=== PATIENT | female | born 1945 | race Caucasian/White ===

== ENCOUNTER → 2017-05-30 | Outpatient (CLI) | payer OTHER ==
[~2017-05-30] MED LIST: ALFALFA250 MG PO; ALLEGRA ALLERG180 MG PO; ALLEGRA180 MG PO; ALLEGRA60 MG; ASPIRIN EC81 M1 PO; ATHLETIC FOOT C30 GM TOP; AUGMENTIN 875-1 EACH PO; C-1000 WITH R1000 MG PO; CAL-MAG TABLET1 EACH PO; CALCIUM 600 +1 EA11 PO; CELEBREX 200 M200 MG; CENTANY30 GM TOP; CENTRUM SILVER1 EAC1 PO; CENTRUM SILVER1 EAC4 PO; CHOLEST CARE500 MG; CHROMIUM PICO200 MC1 PO; CITRACAL-VIT D1 EACH PO; CLARITIN10 M2 PO; CLEOCIN HCL150 MG PO; COLACE100 MG PO; COQ-10100 MG PO; COZAAR 50 MG TA50 M2; CRANBERRY400 MG PO; CRESTOR5 MG PO; CVS SUPER CRAN1 EACH PO; D-BIOTIN1 GM; EXCEDRIN CAPLE1 EACH PO; FISH OIL 1,2001 EAC3 PO; FISH OIL 1,4001 EACH PO; FISHOIL PO; FLEXERIL; FLEXERIL PO; FLONASE NS; HCTZ PO; HYDROCODON-ACE1 EAC7; HYDROCODON-ACE1 EAC7 PO; I-CAPS AREDS S1 EACH PO; IBUPROFEN 200200 M1 PO; IMODIUM ADVANC1 EAC1; IMODIUM MULTI-1 EACH PO; IRON325 PO; KAPIDEX30 MG PO; KLOR-CON 1010 MEQ PO; KYOLIC PO; L-LYSINE500 M1 PO; LASIX 20 MG TAB20 MG PO; LECITHIN PO; LEVOTHROID125 MCG PO; LIVALO4 MG PO; LOPERAMIDE 2 MG2 M1 PO; LORTAB 5 MG/5001 TA1; LOSARTAN POTAS100 MG PO; LOSARTAN POTASS50 MG PO; MAGNESIUM PO; MAGNESIUM500 MG PO; MAGOX 400400 MG; MECLIZINE HCL12.5 MG PO; MEDROLDOSEPACK PO; NEURONTIN 300300 M1 PO; NORCO 10-325 T1 EACH PO; NORCO 5-325 TA1 EACH PO; OMEPRAZOLE20 M2; PERCOCET PO; POTASSIUM GLUCO90 MG PO; POTASSIUM20 PO; POTASSIUM99 M1 PO; PRENATAL VITAM1 EAC6 PO; PROTONIX40 M1 PO; PROTONIX40 M2 PO; Q SORB CO Q PO; RED YEAST RICE600 M1 PO; REGLAN 10 MG TA10 MG PO; REPATHA SU140 MG/1 M SUBQ; REPATHA SY140 MG/1 M SQ; REQUIP 1 MG TABL1 M1 PO; REQUIP0.5 MG PO; REQUIP2 MG PO; SYNTHROID PO; SYNTHROID100 MC1 PO; SYNTHROID125 MCG PO; TRAMADOL PO; TRIAMCINOLONE A80 G2 TOP; Tumeric PO; ULTRAM 50MG TAB50 MG PO; VALIUM5 MG PO; VANADYL SULFATE PO; VANADYL SULFATE1 GM; VERAPAMIL ER240 MG PO; VERAPAMIL HCL240 M1; VITAMIN B-1100 M1 PO; VITAMIN B-121000 MC1 PO; VITAMIN B-625 MG PO; VITAMIN D35000 UNI1 PO; VITAMIN D5000 UNI1 PO; VITAMIN E1000 UNI3 PO; VITAMIN E400 UNIT PO; VITAMINC500 PO; ZANAFLEX2 M1 PO; ZANAFLEX2 MG PO; ZANAFLEX4 MG PO; ZINC PO; [UNRECOGNIZED DRUG - OTHER] PO; [UNRECOGNIZED DRUG - OTHER] PO
[2017-05-30 12:35] LABS: CREATININE 0.6 mg/dL (0.6-1.3); POTASSIUM 3.8 mmol/L (3.5-5.1)
== END ==
LOC: M.LAB 11:54
PROVIDERS: Internal Medicine Cardiovascular Disease
DX: I10 Essential (primary) hypertension (principal); R60.0 Localized edema; E78.2 Mixed hyperlipidemia

== ENCOUNTER → 2017-06-27 | Outpatient (CLI) | payer OTHER | LOC: M.ULTRA 06-25 12:13 | DX: E03.9 Hypothyroidism, unspecified (principal); R22.1 Localized swelling, mass and lump, neck; M79.9 Soft tissue disorder, unspecified ==

== ENCOUNTER 2017-08-20 09:17 | Emergency (ER) | payer OTHER ==
[~2017-08-20] VITALS: Ht 154.9 cm; Wt 85.3 kg
[~2017-08-20 09:17] MED LIST changes: -ATHLETIC FOOT C30 GM TOP; -CALCIUM 600 +1 EA11 PO; -CLARITIN10 M2 PO; -EXCEDRIN CAPLE1 EACH PO; -KLOR-CON 1010 MEQ PO; -LASIX 20 MG TAB20 MG PO; -MECLIZINE HCL12.5 MG PO; -SYNTHROID100 MC1 PO; -TRIAMCINOLONE A80 G2 TOP; -VITAMIN E400 UNIT PO; -VITAMINC500 PO; -ZANAFLEX2 MG PO
[2017-08-20] MEDS ORDERED: NORCO 5-325 TA1 EACH PO (09:35)
[2017-08-20] MEDS ORDERED: FLEXERIL PO (09:35)
[2017-08-20 10:02] VITALS: BP 143/73
[2018-03-13] MEDS ORDERED: NORCO 5-325 TA1 EACH PO (10:56)
== END 2017-08-20 10:03 | disposition home or self-care (01) ==
LOC: M.ERS 09:17
DX: G89.29 Other chronic pain (principal); K21.9 Gastro-esophageal reflux disease without esophagitis; I10 Essential (primary) hypertension; Z88.6 Allergy status to analgesic agent; Z91.041 Radiographic dye allergy status; Z88.8 Allergy status to other drugs, medicaments and biological substances; Z90.49 Acquired absence of other specified parts of digestive tract; Z87.442 Personal history of urinary calculi; Z90.710 Acquired absence of both cervix and uterus

== ENCOUNTER 2017-11-25 14:52 | Emergency (ER) | payer OTHER ==
[~2017-11-25] VITALS: Ht 157.5 cm; Wt 83.5 kg
[2017-11-25 16:19] LABS: ABSOLUTE BASOPHILS 0.1 thou/uL (0.0-0.2); ABSOLUTE EOSINOPHILS 0.4 thou/uL (0.0-0.7); ABSOLUTE LYMPHOCYTES 2.3 thou/uL (0.8-5.3); ABSOLUTE MONOCYTES 0.8 thou/uL (0.0-1.2); ABSOLUTE NEUTROPHILS 6.1 thou/uL (1.6-8.1); BASOPHILS 0.7 %; HEMOGLOBIN 13.2 gm/dL (12.0-15.0); LYMPHOCYTES 24.2 %; MCH 30.5 pg (26.0-34.0); MCHC 32.9 g/dL (28.0-37.0); MCV 92.5 fL (80.0-100.0); MONOCYTES 7.9 %; MPV 7.9 fl. (7.2-11.1); NUCLEATED RBCS 0 /100WBC; PLATELET COUNT* 305 thou/uL (150-400); POLYS 63.2 %; RBC 4.32 mil/uL (4.20-5.00); RDW-CV 13.7 % (10.5-14.5); WBC 9.6 thou/uL (4.0-11.0)
[2017-11-25 16:26] LABS: CALCIUM 9.6 mg/dL (8.5-10.1); CREATININE 0.8 mg/dL (0.6-1.3); POTASSIUM 4.3 mmol/L (3.5-5.1)
[2017-11-25 16:31] LABS: ALBUMIN 3.8 g/dL (3.4-5.0); TOTAL BILIRUBIN 0.4 mg/dL (<0.1-1.0); TOTAL PROTEIN 6.9 g/dL (6.4-8.2)
[2017-11-25 17:26] LABS: URINE BILIRUBIN NEGATIVE (Negative); URINE BLOOD TRACE (Negative); URINE CLARITY CLEAR; URINE COLOR YELLOW; URINE GLUCOSE-RANDOM NEGATIVE (Negative); URINE KETONES NEGATIVE (Negative); URINE LEUKOCYTES-REFLEX NEGATIVE (Negative); URINE NITRITE-REFLEX NEGATIVE (Negative); URINE PROTEIN NEGATIVE (Negative); URINE UROBILINOGEN 0.2 E.U./dl (0.2-1.0)
[2017-11-25] MEDS ORDERED: MECLIZINE HCL12.5 MG PO (17:29)
[2017-11-25] MEDS ORDERED: TRIAMCINOLONE A80 G2 TOP (17:29)
[2017-11-25] MEDS ORDERED: ATHLETIC FOOT C30 GM TOP (17:29)
[2017-11-25 17:45] VITALS: BP 131/72
--- NOTE | 2017-11-26 17:16 | EKG ---
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 Machine Operator: Danielle WHITE : 1945 Requested By: Yokasta Short Order Number: [id number] MD: Dexter Gomes Measurements Intervals [place] Rate: 59 P: 20 MO: 155 QRS: -14 QRSD: 89 T: 11 QT: 452 QTc: 448 Interpretive Statements Sinus rhythm Left ventricular hypertrophy, by voltage Anterior Q waves, possibly due to LVH Compared to ECG 06/28/2015 14:31:34 Left ventricular hypertrophy now present Q waves now present Sinus tachycardia no longer present Myocardial infarct finding no longer present Electronically Signed On 11-26-2017 17:16:17 CDT by Dexter Gomes [email or web address] <ELECTRONICALLY SIGNED> By: Dexter Gomes MD, FACC 11/26/17 1716 1557 1557 Dexter Gomes MD, [facility] /EPI
[2018-03-13] MEDS ORDERED: NORCO 5-325 TA1 EACH PO (10:56)
== END 2017-11-25 17:45 | disposition home or self-care (01) ==
LOC: M.ERS 14:52
PROVIDERS: Nurse Practitioner Family
DX: R42 Dizziness and giddiness (principal); L24.1 Irritant contact dermatitis due to oils and greases; I10 Essential (primary) hypertension; E03.9 Hypothyroidism, unspecified; K21.9 Gastro-esophageal reflux disease without esophagitis; G25.81 Restless legs syndrome; Z90.49 Acquired absence of other specified parts of digestive tract; Z88.6 Allergy status to analgesic agent; Z91.041 Radiographic dye allergy status; Z88.8 Allergy status to other drugs, medicaments and biological substances; Z90.89 Acquired absence of other organs; Z87.442 Personal history of urinary calculi

== ENCOUNTER → 2018-01-31 | Outpatient (CLI) | payer OTHER ==
[~2018-01-31] MED LIST changes: +ATHLETIC FOOT C30 GM TOP; +MECLIZINE HCL12.5 MG PO; +TRIAMCINOLONE A80 G2 TOP
[2018-01-31 14:18] LABS: CHOLESTEROL 156 mg/dL (<200); HDL CHOLESTEROL 51 mg/dL (>40); LDL CHOLESTEROL 79 mg/dL (<100); TC:HDL 3.1 Ratio (Not establshd); TRIGLYCERIDE 133 mg/dL (<150); VLDL 27 mg/dL (<40)
[2018-01-31 14:24] LABS: SERUM ASSESSMENT Clear
== END ==
LOC: M.LAB 13:50
PROVIDERS: Internal Medicine Cardiovascular Disease
DX: E78.00 Pure hypercholesterolemia, unspecified (principal); I10 Essential (primary) hypertension; E03.9 Hypothyroidism, unspecified; K21.9 Gastro-esophageal reflux disease without esophagitis

== ENCOUNTER → 2018-02-10 | Outpatient (CLI) | payer OTHER | LOC: M.RAD 14:32 | DX: M25.571 Pain in right ankle and joints of right foot (principal); M79.671 Pain in right foot; W19.XXXA Unspecified fall, initial encounter ==

== ENCOUNTER → 2018-02-26 | Outpatient (CLI) | payer OTHER ==
[~2018-02-26] MED LIST changes: +CALCIUM 600 +1 EA11 PO; +CLARITIN10 M2 PO; +EXCEDRIN CAPLE1 EACH PO; +KLOR-CON 1010 MEQ PO; +LASIX 20 MG TAB20 MG PO; +SYNTHROID100 MC1 PO; +VITAMIN E400 UNIT PO; +VITAMINC500 PO; +ZANAFLEX2 MG PO
== END ==
LOC: M.RAD 13:57
DX: M47.816 Spondylosis without myelopathy or radiculopathy, lumbar region (principal); M43.26 Fusion of spine, lumbar region; M41.85 Other forms of scoliosis, thoracolumbar region

== ENCOUNTER → 2018-03-12 | Outpatient (CLI) | payer OTHER | LOC: M.ULTRA 08:20 | DX: N28.1 Cyst of kidney, acquired (principal); R10.12 Left upper quadrant pain; Z90.49 Acquired absence of other specified parts of digestive tract ==

== ENCOUNTER 2018-03-13 11:19 | Emergency (ER) | payer OTHER ==
[~2018-03-13] VITALS: Ht 154.9 cm; Wt 84.8 kg
[~2018-03-13 11:19] MED LIST changes: -CALCIUM 600 +1 EA11 PO; -CLARITIN10 M2 PO; -EXCEDRIN CAPLE1 EACH PO; -KLOR-CON 1010 MEQ PO; -LASIX 20 MG TAB20 MG PO; -SYNTHROID100 MC1 PO; -VITAMIN E400 UNIT PO; -VITAMINC500 PO; -ZANAFLEX2 MG PO
[2018-03-13 11:57] LABS: URINE BILIRUBIN NEGATIVE (Negative); URINE BLOOD NEGATIVE (Negative); URINE CLARITY CLOUDY; URINE COLOR YELLOW; URINE GLUCOSE-RANDOM NEGATIVE (Negative); URINE KETONES NEGATIVE (Negative); URINE LEUKOCYTES NEGATIVE (Negative); URINE NITRITE NEGATIVE (Negative); URINE PROTEIN NEGATIVE (Negative); URINE UROBILINOGEN 0.2 E.U./dl (0.2-1.0)
[2018-03-13 12:06] LABS: BACTERIA None Seen /HPF (None Seen); CASTS None Seen /LPF (None Seen); MUCUS None Seen strn/LPF (None Seen); SQUAMOUS NONE SEEN /LPF (0-3); URINE RBC None Seen /HPF (0-2); URINE WBC None Seen /HPF (0-5)
[2018-03-13 12:07] LABS: AMORPHOUS PHOSPHATES Moderate /LPF (None Seen); CRYSTALS None Seen /LPF (None Seen)
[2018-03-13 12:07] LABS: ABSOLUTE BASOPHILS 0.1 thou/uL (0.0-0.2); ABSOLUTE EOSINOPHILS 0.3 thou/uL (0.0-0.7); ABSOLUTE LYMPHOCYTES 2.8 thou/uL (0.8-5.3); ABSOLUTE MONOCYTES 0.9 thou/uL (0.0-1.2); ABSOLUTE NEUTROPHILS 8.4 thou/uL (1.6-8.1); EOSINOPHILS 2.3 %; HEMOGLOBIN 13.4 gm/dL (12.0-15.0); LYMPHOCYTES 22.2 %; MCH 30.8 pg (26.0-34.0); MCHC 33.5 g/dL (28.0-37.0); MCV 91.9 fL (80.0-100.0); MONOCYTES 7.5 %; MPV 8.2 fl. (7.2-11.1); NUCLEATED RBCS 0 /100WBC; PLATELET COUNT* 295 thou/uL (150-400); RBC 4.35 mil/uL (4.20-5.00); RDW-CV 13.3 % (10.5-14.5); WBC 12.6 thou/uL (4.0-11.0)
[2018-03-13 12:18] LABS: CALCIUM 9.8 mg/dL (8.5-10.1); CREATININE 0.5 mg/dL (0.6-1.3); POTASSIUM 4.2 mmol/L (3.5-5.1)
[2018-03-13 12:22] LABS: ALBUMIN 3.8 g/dL (3.4-5.0); TOTAL BILIRUBIN 0.4 mg/dL (<0.1-1.0); TOTAL PROTEIN 7.2 g/dL (6.4-8.2)
[2018-03-13] MEDS ORDERED: KLOR-CON 1010 MEQ PO (12:35)
[2018-03-13] MEDS ORDERED: SYNTHROID100 MC1 PO (12:35)
[2018-03-13] MEDS ORDERED: ZANAFLEX2 MG PO (12:35)
[2018-03-13] MEDS ORDERED: LASIX 20 MG TAB20 MG PO (12:36)
[2018-03-13] MEDS ORDERED: VITAMINC500 PO (12:37)
[2018-03-13] MEDS ORDERED: CLARITIN10 M2 PO (12:37)
[2018-03-13] MEDS ORDERED: VITAMIN E400 UNIT PO (12:38)
[2018-03-13] MEDS ORDERED: COQ-10100 MG PO (12:59)
[2018-03-13] MEDS ORDERED: CALCIUM 600 +1 EA11 PO (12:59)
[2018-03-13] MEDS ORDERED: EXCEDRIN CAPLE1 EACH PO (13:00)
[2018-03-13 14:53] VITALS: BP 172/85
== END 2018-03-13 14:54 | disposition home or self-care (01) ==
LOC: M.ERS 11:19
PROVIDERS: Nurse Practitioner Family
DX: R10.32 Left lower quadrant pain (principal); M48.061 Spinal stenosis, lumbar region without neurogenic claudication; M51.06 Intervertebral disc disorders with myelopathy, lumbar region; E03.9 Hypothyroidism, unspecified; K21.9 Gastro-esophageal reflux disease without esophagitis; I10 Essential (primary) hypertension; G25.81 Restless legs syndrome; Z88.6 Allergy status to analgesic agent; Z91.041 Radiographic dye allergy status; Z88.8 Allergy status to other drugs, medicaments and biological substances; Z90.49 Acquired absence of other specified parts of digestive tract; Z87.442 Personal history of urinary calculi

== ENCOUNTER → 2018-03-13 | Outpatient (CLI) | payer OTHER ==
--- NOTE | ~2018-03-13 | PAINCON ---
[address] [address] PAIN MANAGEMENT CONSULTATION Name: RAAD CAPUTO Room: [facility]#: [id number] Admission: 03/13/18 Attend Phys: Lc Owens MD Discharge: Date of : 47 Report #: [id number] THIS REPORT FOR: //name// CC: Sonya Stephen DATE OF SERVICE: 03/13/2018 PRIMARY CARE PHYSICIAN: 1. Maggy Malave DO 2. MARY Ho CHIEF COMPLAINT: Abdominal pain. HISTORY: The patient is a 72-year-old female who has been followed in the pain clinic because of chronic lumbar pain. She has returned today for renewal of her medication. At this juncture, she has noted worsening of pain and discomfort in the left lower quadrant. States that she has been told that she had diverticulitis. She feels that the antibiotic, which she has been given may be helping, but feels that her overall condition continues to worsen. States that this feels similar to how her abdominal area felt prior to removal of her appendix. As you may recall, she suffers from lumbar radiculopathy and failed back syndrome. She has returned today and also notes some pain and discomfort in her right knee. She states that she twisted her knee. ALLERGIES: ASPIRIN - BLEEDING ULCER, LIPITOR, LEG CRAMPS, CONTRAST DYE ITCHING, MORPHINE, NONSTEROIDAL ANTI-INFLAMMATORY MEDICATIONS, PRAVASTATIN, LEG CRAMPS, CRESTOR, LEG CRAMPS, TAPE. CURRENT MEDICATIONS: Evolocumab 100 mg subcutaneous every 2 weeks, hydrocodone 10/325 one p.o. q. 4 hours p.r.n., Imodium 2 mg, Synthroid 100 mcg, Zanaflex 2 mg muscle spasms, potassium 10 mEq daily, Lasix 20 mg, Claritin 10 mg, vitamin C, vitamin E 400 units, calcium, CoQ10 100 mg, Excedrin caplets, verapamil ER 240 mg, Requip 4 mg as directed, Michelle 180 mg, vitamin D3 5000 units, chromium 200 mcg, Vanadyl sulfate 500 mg daily. PAIN CLINIC PQRS: 1. History of osteoarthritis. The patient does complain of pain and discomfort in her knees. The patient is not being treated for rheumatoid arthritis. 2. Height 5 feet 2 inches, weight 188 pounds, BMI is 34. 3. Vital Signs: Blood pressure 131/94, heart rate 72, respiratory rate 16, room air saturation 94%. Temperature is 98 degrees. Pain intensity [address]. [place] [address] PAIN MANAGEMENT CONSULTATION Name: RAAD CAPUTO Room: [facility]#: [id number] Admission: 03/13/18 Attend Phys: Lc Owens MD Discharge: Date of : 47 Report #: [id number] 4. Fall history: The patient has not fallen in the last 3 months. 5. Blood thinner. The patient is not on a blood thinning medication. 6. Hypertension. The patient is being treated for hypertension. 7. Opioids greater than 6 weeks. The patient has received an opioid medications greater than 6 weeks. 8. Risk assessment tool. 9. Functional assessment tool. 10. Recreational drug use. The patient denies use of recreational drugs. 11. Tobacco: The patient denies use of tobacco. 12. Alcohol: The patient denies use of alcoholic beverages. PHYSICAL EXAMINATION: GENERAL: The patient is a well-developed, well-nourished white female. Appears her stated age. She is alert and oriented x 3. Affect is appropriate. The patient does seem to be in pain. Grimaces during the interview. HEENT: Normocephalic, atraumatic. Extraocular eye muscles intact. Sclerae nonicteric. Mucous membranes are moist. NECK: Without JVD or adenopathy. HEART: Regular rate. ABDOMEN: The patient has some pain and discomfort in the left lower quadrant area. Upper extremity muscle strength is judged to be 4+/5 for the major muscle groups in the upper extremity. The patient has pain and discomfort in the low back area with some pain in the anterior portion of her hip. IMPRESSION: Abdominal pain with history of diverticulitis. RECOMMENDATIONS: We discussed treatment options with the patient. We will renew the patient's hydrocodone. The patient would like to takes medication for pain. Because of her condition, she is not able to take nonsteroidal anti-inflammatory medications. A script for hydrocodone 5/325 one p.o. t.i.d. have been written. The patient states that her pain is still quite problematic. She is going to go to the Emergency Room as soon as she leaves the pain clinic. We have explained to her the possible complications of ruptured diverticulum. She is going to go to the Emergency Room and seek treatment at this juncture. We would like to thank you for letting us participate in her care. We hope she continues to improve. By: [id number]. Boston Owens MD /GEORGETTE
== END ==
LOC: M.PC 03-04 09:30
DX: R10.32 Left lower quadrant pain (principal); Z87.19 Personal history of other diseases of the digestive system

== ENCOUNTER → 2018-04-04 | Outpatient (CLI) | payer OTHER ==
[~2018-04-04] MED LIST changes: +CALCIUM 600 +1 EA11 PO; +CLARITIN10 M2 PO; +EXCEDRIN CAPLE1 EACH PO; +KLOR-CON 1010 MEQ PO; +LASIX 20 MG TAB20 MG PO; +SYNTHROID100 MC1 PO; +VITAMIN E400 UNIT PO; +VITAMINC500 PO; +ZANAFLEX2 MG PO
== END ==
LOC: M.WC 09:42
DX: M27.8 Other specified diseases of jaws (principal); C08.9 Malignant neoplasm of major salivary gland, unspecified; E03.8 Other specified hypothyroidism; G25.81 Restless legs syndrome; I25.10 Atherosclerotic heart disease of native coronary artery without angina pectoris; I10 Essential (primary) hypertension; I25.2 Old myocardial infarction; J30.2 Other seasonal allergic rhinitis; K21.9 Gastro-esophageal reflux disease without esophagitis; M54.5 Low back pain; M06.9 Rheumatoid arthritis, unspecified; Z90.710 Acquired absence of both cervix and uterus; Z98.49 Cataract extraction status, unspecified eye; W88.8XXA Exposure to other ionizing radiation, initial encounter; Y93.89 Activity, other specified; Y92.89 Other specified places as the place of occurrence of the external cause; Y99.8 Other external cause status

== ENCOUNTER → 2018-07-25 | Outpatient (CLI) | payer OTHER | LOC: M.WC 09:00 | DX: M27.2 Inflammatory conditions of jaws (principal); C08.9 Malignant neoplasm of major salivary gland, unspecified; E03.9 Hypothyroidism, unspecified; H65.23 Chronic serous otitis media, bilateral; I10 Essential (primary) hypertension; I25.10 Atherosclerotic heart disease of native coronary artery without angina pectoris; I25.2 Old myocardial infarction; J30.2 Other seasonal allergic rhinitis; G25.81 Restless legs syndrome; K21.9 Gastro-esophageal reflux disease without esophagitis; M06.9 Rheumatoid arthritis, unspecified; Z90.49 Acquired absence of other specified parts of digestive tract; Z90.710 Acquired absence of both cervix and uterus; Z98.49 Cataract extraction status, unspecified eye; Y78.1 Therapeutic (nonsurgical) and rehabilitative radiological devices associated with adverse incidents; Y63.2 Overdose of radiation given during therapy ==

== ENCOUNTER → 2018-08-27 | Outpatient (CLI) | payer OTHER ==
[2018-08-27 10:35] LABS: CREATININE 0.7 mg/dL (0.6-1.3)
== END ==
LOC: M.CT 08-25 10:55 → M.LAB 10:00 → M.CT 11:00
PROVIDERS: Orthopaedic Surgery
DX: M51.36 Other intervertebral disc degeneration, lumbar region (principal); M48.07 Spinal stenosis, lumbosacral region; M47.816 Spondylosis without myelopathy or radiculopathy, lumbar region; Z98.890 Other specified postprocedural states

== ENCOUNTER 2018-09-04 00:44 | Inpatient (IN) | payer OTHER ==
[~2018-09-04] VITALS: Ht 157.5 cm; Wt 84.8 kg
[2018-09-04] VITALS (8 sets, daily range): BP systolic 113–137; BP diastolic 50–69
[~2018-09-04 00:44] MED LIST changes: +REQUIP XL2 MG PO; -REQUIP2 MG PO; +VERAPAMIL ER240 M1 PO; -VERAPAMIL ER240 MG PO
[2018-09-04 01:09] LABS: ABSOLUTE BASOPHILS 0.1 thou/uL (0.0-0.2); ABSOLUTE EOSINOPHILS 0.1 thou/uL (0.0-0.7); ABSOLUTE LYMPHOCYTES 1.1 thou/uL (0.8-5.3); ABSOLUTE MONOCYTES 0.9 thou/uL (0.0-1.2); ABSOLUTE NEUTROPHILS 14.5 thou/uL (1.6-8.1); BASOPHILS 0.7 %; EOSINOPHILS 0.4 %; HEMATOCRIT 43.8 % (37.0-47.0); HEMOGLOBIN 14.7 gm/dL (12.0-15.0); LYMPHOCYTES 6.6 %; MCH 30.5 pg (26.0-34.0); MCHC 33.5 g/dL (28.0-37.0); MCV 91.1 fL (80.0-100.0); MONOCYTES 5.3 %; MPV 7.5 fl. (7.2-11.1); NUCLEATED RBCS 0 /100WBC; PLATELET COUNT* 334 thou/uL (150-400); RBC 4.81 mil/uL (4.20-5.00); RDW-CV 14.7 % (10.5-14.5); WBC 16.7 thou/uL (4.0-11.0)
[2018-09-04 01:19] LABS: INR 1.1; PROTIME 10.8 Seconds (9.20-11.50)
[2018-09-04 01:36] LABS: ANION GAP 13 mmol/L (7-16); BUN 23 mg/dL (7-18); CALCIUM 8.6 mg/dL (8.5-10.1); CHLORIDE 103 mmol/L (98-107); CO2 24 mmol/L (21-32); CREATININE 0.8 mg/dL (0.6-1.3); GLUCOSE 118 mg/dL (70-99); SODIUM 140 mmol/L (136-145)
[2018-09-04 01:53] LABS: ALBUMIN 3.2 g/dL (3.4-5.0); ALKALINE PHOSPHATASE 83 U/L (46-116); NT-PRO BRAIN NAT PEPTIDE 329 pg/mL (<300); SGOT 22 U/L (15-37); SGPT 27 U/L (30-65); TOTAL BILIRUBIN 0.7 mg/dL (<0.1-1.0); TOTAL PROTEIN 6.5 g/dL (6.4-8.2); TROPONIN-I LEVEL <0.06 ng/mL (<0.06)
[2018-09-04 02:00] LABS: URINE BILIRUBIN NEGATIVE (Negative); URINE BLOOD 1+ (Negative); URINE CLARITY CLEAR; URINE COLOR DARK YELLOW; URINE GLUCOSE-RANDOM NEGATIVE (Negative); URINE KETONES TRACE (Negative); URINE LEUKOCYTES-REFLEX NEGATIVE (Negative); URINE NITRITE-REFLEX NEGATIVE (Negative); URINE PROTEIN TRACE (Negative); URINE SPECIFIC GRAVITY 1.025 (1.005-1.030); URINE UROBILINOGEN 0.2 E.U./dl (0.2-1.0)
[2018-09-04 02:11] LABS: CASTS None Seen /LPF (None Seen); CRYSTALS None Seen /LPF (None Seen); MUCUS 4-6 Moderate strn/LPF (None Seen); SQUAMOUS 0-3 Few /LPF (0-3); URINE RBC 3-10 Few /HPF (0-2); URINE WBC-REFLEX None Seen /HPF (0-5)
--- NOTE | 2018-09-04 04:54 | NUR ---
PT RECIEVED FROM ED. ALERT AND ORIENTED X4. CALL LIGHT WITHIN REACH AND BED IN LOW POSITION. SAT MAINTAINED IN NC. C/O PAIN, MEDICATION GIVEN PER EMAR. HOURLY ROUNDIING DONE FOR PT SAFETY.
--- NOTE | 2018-09-04 09:55 | NUR ---
0758 ASSUMED CARE OF PATIENT. PLEASE SEE DOCUMENTED ASSESSMENT. NSR.OXYGEN AT 2LPM.PT IS FATIGUED
--- NOTE | 2018-09-04 10:56 | EKG ---
[place] [address] ELECTROCARDIOGRAM REPORT Name: RAAD CAPUTO Room: [address] ADM IN M.R.#: [id number] Admission: 09/04/18 Attend Phys: Sincere Up MD Discharge: Date of : 47 Report #: [id number] THIS REPORT FOR: //name// [facility] ED Test Date: 2018-09-04 Test Time: 00:59:13 Pat Name: RAAD CAPUTO Department: Room: [facility] Gender: F Pen Ruler Operator: Danielle CRUZ : 1945 Requested By: Jorge Wagoner Order Number: [id number] MD: Yobani Smith Measurements Intervals [place] Rate: 92 P: 34 NE: 137 QRS: -16 QRSD: 78 T: 18 QT: 345 QTc: 427 Interpretive Statements Sinus rhythm Probable left atrial enlargement Left ventricular hypertrophy Inferior infarct, old Compared to ECG 11/25/2017 15:57:59 Myocardial infarct finding now present Q waves no longer present Electronically Signed On 09-04-2018 10:56:22 CDT by Yobani Smith [email or web address] <ELECTRONICALLY SIGNED> By: Yobani Smith MD, [facility] 09/04/18 1056 0059 0059 Yobani Smith MD, [facility] /EPI
--- NOTE | 2018-09-04 15:27 | NUR ---
Pt is A&O. 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 Pt is independent and active. Pt has a walker that she can use if needed. Hx of HH. No hx of SNF. Supportive family and neighbors. Goal is home at mt. No needs anticipated. Following.
--- NOTE | 2018-09-04 17:11 | NUR ---
PATIENT PROGRESSING TOWARDS GOALS. NOT LIGHT HEADED AND AMBULATING STEADILY. AFEBRILE. VSS. ONE EPISODE OF HEARTBURN RESOLVED WITH ZOFRAN.VOIDING IN BATHROOM WITHOUT COMPLAINTS. HAS HAD VISITORS
--- NOTE | 2018-09-04 18:03 | NUR ---
OXYGEN TITRATED OFF WITH ROOM AIR SAT OF 96%
[2018-09-05 03:57] VITALS: BP 146/70
[2018-09-05 04:41] LABS: ABSOLUTE MONOCYTES 1.3 thou/uL (0.0-1.2); ABSOLUTE NEUTROPHILS 7.2 thou/uL (1.6-8.1); BASOPHILS 0.2 %; EOSINOPHILS 0.3 %; HEMATOCRIT 34.4 % (37.0-47.0); LYMPHOCYTES 25.8 %; MCH 30.4 pg (26.0-34.0); MCHC 32.7 g/dL (28.0-37.0); MCV 92.9 fL (80.0-100.0); MPV 7.7 fl. (7.2-11.1); NUCLEATED RBCS 0 /100WBC; POLYS 62.7 %; RBC 3.71 mil/uL (4.20-5.00); RDW-CV 15.1 % (10.5-14.5); WBC 11.5 thou/uL (4.0-11.0)
[2018-09-05 04:57] LABS: HEMOGLOBIN 11.3 gm/dL (12.0-15.0); PLATELET COUNT* 259 thou/uL (150-400)
[2018-09-05 05:00] LABS: CREATININE 0.7 mg/dL (0.6-1.3); POTASSIUM 3.7 mmol/L (3.5-5.1)
--- NOTE | 2018-09-05 06:02 | NUR ---
PT IS ABLE TO COMMUNICATE HER NEEDS TO STAFF EFFECTIVELY. SHE HAS DENIED THE NEED FOR PAIN MEDICATION UP TO THIS TIME. POSSIBLE DISCHARGE TODAY.
[2018-09-05 07:30] VITALS: BP 165/73
[2018-09-05 13:01] VITALS: BP 103/54
[2018-09-05 16:11] VITALS: BP 108/65
[2018-09-05 20:25] VITALS: BP 136/65
[2018-09-05 23:51] VITALS: BP 100/35
[2018-09-06 04:00] VITALS: BP 151/78
[2018-09-06 05:08] LABS: ABSOLUTE EOSINOPHILS 0.3 thou/uL (0.0-0.7); ABSOLUTE LYMPHOCYTES 4.5 thou/uL (0.8-5.3); ABSOLUTE NEUTROPHILS 4.9 thou/uL (1.6-8.1); BASOPHILS 0.3 %; EOSINOPHILS 3.1 %; HEMATOCRIT 36.9 % (37.0-47.0); HEMOGLOBIN 12.2 gm/dL (12.0-15.0); LYMPHOCYTES 41.9 %; MCH 30.4 pg (26.0-34.0); MCHC 33.1 g/dL (28.0-37.0); MONOCYTES 9.2 %; MPV 7.8 fl. (7.2-11.1); NUCLEATED RBCS 0 /100WBC; PLATELET COUNT* 268 thou/uL (150-400); POLYS 45.5 %; RBC 4.01 mil/uL (4.20-5.00); RDW-CV 14.9 % (10.5-14.5); WBC 10.8 thou/uL (4.0-11.0)
[2018-09-06 05:36] LABS: ALBUMIN 2.7 g/dL (3.4-5.0); CALCIUM 8.3 mg/dL (8.5-10.1); CREATININE 0.8 mg/dL (0.6-1.3); POTASSIUM 4.2 mmol/L (3.5-5.1); TOTAL BILIRUBIN 0.2 mg/dL (<0.1-1.0); TOTAL PROTEIN 5.6 g/dL (6.4-8.2)
--- NOTE | 2018-09-06 06:38 | NUR ---
PT IS ABLE TO COMMUNICATE HER NEEDS TO STAFF EFFECTIVELY. SHE HAS DENIED THE NEED FOR PAIN MEDICATION UP TO THIS TIME. POSSIBLE DISCHARGE LATER TODAY.
[2018-09-06 07:30] VITALS: BP 169/76
[2018-09-06] MEDS ORDERED: AZITHROMYCIN 2250 MG PO (09:57)
[2018-09-06] MEDS ORDERED: PREDNISONE 20 M20 MG PO (09:57)
[2018-09-06] MEDS ORDERED: CEFDINIR300 MG PO (09:57)
[2018-09-06] MEDS ORDERED: TESSALON PERLE100 MG PO (09:57)
[2018-09-06 10:10] VITALS: BP 169/76
--- NOTE | 2018-09-06 12:32 | NUR ---
RECEIVED DISCHARGE ORDERS PER DR ROBERTSON. EDUCATED THE PATIENT AND HER SISTER ON F/U APPOINTMENTS AND HOME MEDICATIONS. NEW SCRIPTS GIVEN WITH MEDICATION INFORMATION SHEETS. THE PATIENT DENIED ANY QUESTIONS OR CONCERNS. SHE IS LEAVING VIA WHEELCHAIR ACCOMPANIED BY NURSING STAFF AND HER SISTER FOR TRANSPORTATION. ALL BELONGINGS PACKED AND ARE LEAVING WITH THE PATIENT.
== END 2018-09-06 12:19 | disposition home or self-care (01) | DRG 871 ==
LOC: M.ERS 00:44 → M.2W 02:27 → M.TBA-ER 02:27 → M.2W 02:36
PROVIDERS: Family Medicine; Internal Medicine; ADMIT Family Medicine
DX: A41.9 Sepsis, unspecified organism (principal); J18.9 Pneumonia, unspecified organism; E87.2 Acidosis; E03.9 Hypothyroidism, unspecified; K21.9 Gastro-esophageal reflux disease without esophagitis; I10 Essential (primary) hypertension; M19.90 Unspecified osteoarthritis, unspecified site; J30.9 Allergic rhinitis, unspecified; Z90.49 Acquired absence of other specified parts of digestive tract; Z90.710 Acquired absence of both cervix and uterus; Z87.442 Personal history of urinary calculi; Z98.1 Arthrodesis status; I25.2 Old myocardial infarction; Z98.49 Cataract extraction status, unspecified eye; Z79.82 Long term (current) use of aspirin; Z79.899 Other long term (current) drug therapy; Z88.6 Allergy status to analgesic agent; Z91.041 Radiographic dye allergy status; Z88.8 Allergy status to other drugs, medicaments and biological substances; Z91.048 Other nonmedicinal substance allergy status

== ENCOUNTER → 2018-11-06 | Outpatient (CLI) | payer OTHER ==
[~2018-11-06] MED LIST changes: +AZITHROMYCIN 2250 MG PO; +CEFDINIR300 MG PO; +PREDNISONE 20 M20 MG PO; +TESSALON PERLE100 MG PO
== END ==
LOC: M.WC 05:17
DX: M27.2 Inflammatory conditions of jaws (principal); C08.9 Malignant neoplasm of major salivary gland, unspecified; E03.9 Hypothyroidism, unspecified; G25.81 Restless legs syndrome; G89.29 Other chronic pain; I10 Essential (primary) hypertension; I25.10 Atherosclerotic heart disease of native coronary artery without angina pectoris; H65.23 Chronic serous otitis media, bilateral; J30.2 Other seasonal allergic rhinitis; K21.9 Gastro-esophageal reflux disease without esophagitis; M06.9 Rheumatoid arthritis, unspecified; Y63.2 Overdose of radiation given during therapy; Y78.1 Therapeutic (nonsurgical) and rehabilitative radiological devices associated with adverse incidents

== ENCOUNTER → 2018-11-10 | Outpatient (CLI) | payer OTHER | LOC: M.WC 10:00 | DX: M27.2 Inflammatory conditions of jaws (principal); K21.9 Gastro-esophageal reflux disease without esophagitis; C08.9 Malignant neoplasm of major salivary gland, unspecified; E03.9 Hypothyroidism, unspecified; G25.81 Restless legs syndrome; G89.29 Other chronic pain; H65.23 Chronic serous otitis media, bilateral; I10 Essential (primary) hypertension; I25.2 Old myocardial infarction; I25.10 Atherosclerotic heart disease of native coronary artery without angina pectoris; J30.2 Other seasonal allergic rhinitis; M06.9 Rheumatoid arthritis, unspecified; Y63.2 Overdose of radiation given during therapy; Y78.1 Therapeutic (nonsurgical) and rehabilitative radiological devices associated with adverse incidents ==

== ENCOUNTER → 2018-12-05 | Outpatient (CLI) | payer OTHER | LOC: M.WC 11-25 09:30 | DX: M27.8 Other specified diseases of jaws (principal); C08.9 Malignant neoplasm of major salivary gland, unspecified; E03.9 Hypothyroidism, unspecified; G25.81 Restless legs syndrome; G89.29 Other chronic pain; I10 Essential (primary) hypertension; I25.2 Old myocardial infarction; I25.10 Atherosclerotic heart disease of native coronary artery without angina pectoris; H65.23 Chronic serous otitis media, bilateral; J30.2 Other seasonal allergic rhinitis; M06.9 Rheumatoid arthritis, unspecified; K21.9 Gastro-esophageal reflux disease without esophagitis; K02.9 Dental caries, unspecified; Y63.2 Overdose of radiation given during therapy; Y78.1 Therapeutic (nonsurgical) and rehabilitative radiological devices associated with adverse incidents ==

== ENCOUNTER → 2019-04-21 | Outpatient (CLI) | payer OTHER | LOC: M.RAD 04-08 17:03 | DX: Z12.31 Encounter for screening mammogram for malignant neoplasm of breast (principal); M81.0 Age-related osteoporosis without current pathological fracture ==

== ENCOUNTER → 2019-05-12 | Outpatient (CLI) | payer MEDICARE | LOC: M.ULTRA 13:41 | DX: I65.23 Occlusion and stenosis of bilateral carotid arteries (principal) ==

== ENCOUNTER → 2019-05-29 | Outpatient (CLI) | payer MEDICARE ==
[~2019-05-29] MED LIST changes: +KEFLEX500 M1 PO
[2019-05-29 09:45] LABS: CHOLESTEROL 104 mg/dL (<200); HDL CHOLESTEROL 50 mg/dL (>40); LDL CHOLESTEROL 22 mg/dL (<100); TC:HDL 2.1 Ratio (Not establshd); TRIGLYCERIDE 160 mg/dL (<150); VLDL 32 mg/dL (<40)
[2019-05-29 09:46] LABS: SERUM ASSESSMENT Clear
== END ==
LOC: M.LAB 08:20
PROVIDERS: Internal Medicine Cardiovascular Disease
DX: E78.2 Mixed hyperlipidemia (principal); I73.9 Peripheral vascular disease, unspecified

== ENCOUNTER 2019-06-04 03:52 | Emergency (ER) | payer MEDICARE ==
[~2019-06-04] VITALS: Ht 154.9 cm; Wt 83.0 kg
[~2019-06-04 03:52] MED LIST changes: -KEFLEX500 M1 PO
[2019-06-04 04:48] LABS: ABSOLUTE BASOPHILS 0.1 thou/uL (0.0-0.2); ABSOLUTE EOSINOPHILS 0.4 thou/uL (0.0-0.7); ABSOLUTE LYMPHOCYTES 3.1 thou/uL (0.8-5.3); BASOPHILS 0.7 %; HEMATOCRIT 37.8 % (37.0-47.0); MCH 31.3 pg (26.0-34.0); MCHC 34.3 g/dL (28.0-37.0); MCV 91.1 fL (80.0-100.0); MONOCYTES 9.3 %; MPV 7.9 fl. (7.2-11.1); NUCLEATED RBCS 0 /100WBC; PLATELET COUNT* 256 thou/uL (150-400); RBC 4.15 mil/uL (4.20-5.00); RDW-CV 13.3 % (10.5-14.5); WBC 10.5 thou/uL (4.0-11.0)
[2019-06-04 05:03] LABS: CALCIUM 9.1 mg/dL (8.5-10.1); CREATININE 0.7 mg/dL (0.6-1.3); POTASSIUM 3.8 mmol/L (3.5-5.1)
[2019-06-04 05:08] LABS: ALBUMIN 3.7 g/dL (3.4-5.0); TOTAL BILIRUBIN 0.5 mg/dL (<0.1-1.0); TOTAL PROTEIN 6.7 g/dL (6.4-8.2)
[2019-06-04] MEDS ORDERED: HYDROCODON-ACE1 EAC7 PO (05:17)
[2019-06-04] MEDS ORDERED: KEFLEX500 M1 PO (05:17)
[2019-06-04 05:25] VITALS: BP 125/54
== END 2019-06-04 05:25 | disposition home or self-care (01) ==
LOC: M.ERS 03:52
PROVIDERS: Personal Emergency Response Attendant
DX: L03.115 Cellulitis of right lower limb (principal); M79.661 Pain in right lower leg; I10 Essential (primary) hypertension; E03.9 Hypothyroidism, unspecified; K21.9 Gastro-esophageal reflux disease without esophagitis; G25.81 Restless legs syndrome; Z90.49 Acquired absence of other specified parts of digestive tract; Z87.442 Personal history of urinary calculi; Z90.710 Acquired absence of both cervix and uterus; Z91.041 Radiographic dye allergy status; Z91.048 Other nonmedicinal substance allergy status; Z88.6 Allergy status to analgesic agent; Z88.8 Allergy status to other drugs, medicaments and biological substances

== ENCOUNTER 2019-10-06 17:30 | Observation (INO) | payer MEDICARE ==
[~2019-10-06] VITALS: Ht 157.5 cm; Wt 87.0 kg
[~2019-10-06 17:30] MED LIST changes: +KEFLEX500 M1 PO
[2019-10-06 17:43] VITALS: BP 137/56
[2019-10-06 17:58] LABS: ABSOLUTE BASOPHILS 0.1 thou/uL (0.0-0.2); ABSOLUTE EOSINOPHILS 0.4 thou/uL (0.0-0.7); ABSOLUTE MONOCYTES 0.8 thou/uL (0.0-1.2); ABSOLUTE NEUTROPHILS 5.4 thou/uL (1.6-8.1); BASOPHILS 0.8 %; EOSINOPHILS 4.4 %; HEMATOCRIT 38.3 % (37.0-47.0); HEMOGLOBIN 13.1 gm/dL (12.0-15.0); LYMPHOCYTES 31.1 %; MCH 31.4 pg (26.0-34.0); MCHC 34.2 g/dL (28.0-37.0); MONOCYTES 7.8 %; MPV 7.4 fl. (7.2-11.1); NUCLEATED RBCS 0 /100WBC; PLATELET COUNT* 348 thou/uL (150-400); POLYS 55.9 %; RBC 4.16 mil/uL (4.20-5.00); RDW-CV 13.9 % (10.5-14.5); WBC 9.7 thou/uL (4.0-11.0)
[2019-10-06 18:07] LABS: CALCIUM 8.5 mg/dL (8.5-10.1); CREATININE 0.8 mg/dL (0.6-1.3); POTASSIUM 3.3 mmol/L (3.5-5.1)
[2019-10-06 18:10] LABS: APTT 24.2 Seconds (25.0-31.3); INR 1.1; PROTIME 11.4 Seconds (9.20-11.50)
[2019-10-06 18:17] LABS: ALBUMIN 3.6 g/dL (3.4-5.0); TOTAL BILIRUBIN 0.3 mg/dL (<0.1-1.0); TOTAL PROTEIN 6.7 g/dL (6.4-8.2)
[2019-10-06 19:53] LABS: URINE BILIRUBIN NEGATIVE (Negative); URINE BLOOD NEGATIVE (Negative); URINE CLARITY CLEAR; URINE COLOR YELLOW; URINE GLUCOSE-RANDOM NEGATIVE (Negative); URINE KETONES NEGATIVE (Negative); URINE LEUKOCYTES-REFLEX NEGATIVE (Negative); URINE NITRITE-REFLEX NEGATIVE (Negative); URINE PROTEIN NEGATIVE (Negative); URINE SPECIFIC GRAVITY <= 1.005 (1.005-1.030); URINE UROBILINOGEN 0.2 E.U./dl (0.2-1.0)
[2019-10-06 21:45] VITALS: BP 127/62
[2019-10-06 22:00] VITALS: BP 143/63
[2019-10-06 22:01] VITALS: BP 150/66
[2019-10-06 22:02] VITALS: BP 158/72
[2019-10-07] VITALS (7 sets, daily range): BP systolic 124–144; BP diastolic 45–77
--- NOTE | 2019-10-07 02:41 | NUR ---
ASSUMED CARE OF PT AT 2200. PT IS ALERT AND ORIENTED. VSS. PERRLA. ORTHOSTATIC VITALS DONE. PT IS IN SINUS RYTHM ON THE TELEMETRY. PT DENIES DIZZYNESS AT THIS TIME. PT IS SLEEPING QUIETLY IN BED. RESPIRATIONS ARE EVEN AND NONLABORED. WILL CONTINUE TO MONITOR PT.
--- NOTE | 2019-10-07 14:45 | NUR ---
Pt is A&O. Resides at home with her . Active and independent. No DME. No hx of HH or SNF. Goal is home at nm. No needs.
--- NOTE | 2019-10-07 17:04 | EKG ---
[place] [address] ELECTROCARDIOGRAM REPORT Name: RAAD CAPUTO Room: [address] M.R.#: [id number] Admission: 10/06/19 Attend Phys: Joyce dumont Sa Discharge: Date of : 47 Date of Service: 10/06/19 1743 Report #: [id number] THIS REPORT FOR: //name// [facility] ED Test Date: 2019-10-06 Test Time: 17:43:16 Pat Name: RAAD CAPUTO Department: Room: [facility] Gender: F Ditto Machine Operator: CCD : 1945 Requested By: Jorge Wagoner Order Number: [id number] MD: Margarito Jimenez Measurements Intervals [place] Rate: 65 P: 11 RI: 169 QRS: -11 QRSD: 92 T: 14 QT: 429 QTc: 447 Interpretive Statements Sinus rhythm Left ventricular hypertrophy Baseline wander in lead(s) V5 Compared to ECG 09/04/2018 00:59:13 Myocardial infarct finding no longer present Electronically Signed On 10-07-2019 17:03:10 CDT by Margarito Jimenez [email or web address] <ELECTRONICALLY SIGNED> By: Margarito Jimenez MD, [facility] 10/07/19 1703 1743 1743 Margarito Jimenez MD, [facility] /EPI
--- NOTE | 2019-10-07 18:00 | NUR ---
RECEIVED REPORT FROM JUSTIN CACERES. ASSUMED CARE OF PT AROUND 0705. AM ASSESSMENT AND VITALS COMPLETED CHARTED. CAMP DIRECTOR IN PLACE. MEDS PER EMAR. PT COMPLETED MRI THIS SHIFT. ORTHOSTATIC BPS CHARTED. PT CONTINUED TO BE DIZZY THIS SHIFT. TOLERATED DIET. UP WITH SBA TO BATHROOM TO VOID. PT CURRENTLY RESTING IN BED. CALL LIGHT IS WITHIN REACH. HOURLY ROUNDING PERFORMED. FALL PRECAUTIONS IN PLACE.
--- NOTE | 2019-10-07 18:04 | CON ---
[address] [address] CONSULTATION Name: RAAD CAPUTO Room: [address] Elia Reeves#: [id number] Admission: 10/06/19 Attend Phys: Joyce Morrissey Discharge: Date of : 47 Report #: [id number] THIS REPORT FOR: //name// cc: Maggy Malave Linda J. DO ~ THIS REPORT FOR: //name// CC: Joyce Hamilton DATE OF SERVICE: 10/07/2019 HISTORY OF PRESENT ILLNESS: This is a 74-year-old female patient who was seen by me for evaluation for any neurological etiology for the patient's dizziness. The dizziness started spontaneously without any trauma. She said it was worse yesterday and she is getting better. She has a prior history of ENT problems. 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 That is a longstanding process. She has some coils put in in a year, but she said that it is MRI compatible. She had MRIs done after that. She denies any anxiety or depression. REVIEW OF SYSTEMS: Indicate that she has no history of TIA or stroke. She has a prior history of kidney stone, D and C, bone spur on the foot, right ankle problem which makes walking difficult, right ear surgery, problem with left leg lymphoma, vocal cord dysfunction, restless leg syndrome, cataract surgery, back surgery, diverticulosis, adenoids. This was a relevant 14-point review of system. PAST MEDICAL HISTORY: Positive for ambulation difficulty because of the patient's ankle problems. FAMILY HISTORY: Noncontributory. SOCIAL HISTORY: She does not smoke or drink any alcohol. PHYSICAL EXAMINATION: Indicates she is alert, responsive, able to follow simple and complex command. Her speech, concentration, fund of knowledge and memory is at her baseline. Cranial nerve examination 2-12 does not appear to be showing any definite abnormality. She appeared to have symmetrical strength, sensation, reflexes and tone. Reflexes are somewhat diminished on both sides and difficult to elicit in the lower extremities, but position sense is present. She indicates she is not a diabetic. She has no papilledema. There is no carotid bruit. She is a moderately built individual who does not have any dysmorphic features of eyes, ears. Blood pressure is 133/63, respirations 17, pulse is 60, temperature is 96.8. Pulses are somewhat difficult to feel, but she has no edema, cyanosis [place] [address] CONSULTATION Name: RAAD CAPUTO Room: [address] Elia Reeves#: [id number] Admission: 10/06/19 Attend Phys: Joyce Morrissey Discharge: Date of : 47 Report #: [id number] LABORATORY DATA: White count is 9.7. Sodium is 137. GFR is 70. She did have a CT scan of the head that does not appear to be showing any definite abnormality. White count is normal. IMPRESSION: Dizziness, most likely ENT pathology. I think it will be desirable to do an MRI with IAC. Her GFR has always been normal. I discussed the indication, potential complication, especially with the contrast. She understands that and she wants to proceed with the testing. We will arrange that. If that is negative, I think the main management should be through the ENT physician. Thank you very much for this referral. <ELECTRONICALLY SIGNED> By: Jos Lowery MD 10/07/19 1804 1021 [id number] Lowery MD /nt
--- NOTE | 2019-10-08 04:17 | NUR ---
ASSUMED PT CARE AT APPROX 1930. PT IS AWAKE AND ORIENTED X4. LEAD PORTFOLIO MANAGER IS TRACING SR/SB. PT C/O BACK AND LEG PAIN THAT IS CHRONIC, AND PARTIALLY RELIEVED BY PAIN MEDS GIVEN PER MAR. NO ACUTE CHANGES THROUGHOUT THIS SHIFT. HIGH FALL PRECAUTIONS IN PLACE. CALL LIGHT WITHIN REACH. HOURLY ROUNDING DONE FOR PT SAFETY.
[2019-10-08 04:47] VITALS: BP 125/64
--- NOTE | 2019-10-08 07:15 | NUR ---
CHANGE OF SHIFT BEDSIDE REPORT GIVEN PATIENT SEEN AT BEDSIDE, IN BED ASLEEP ASSUMED PATIENT CARE
[2019-10-08 08:00] VITALS: BP 132/64
[2019-10-08 11:53] VITALS: BP 132/64
--- NOTE | 2019-10-08 12:30 | NUR ---
DISCHARGE TO HOME ALL DISCHARGE INSTRUCTIONS GIVENS IV AND HEART MONITOR REMOVED PERSONAL BELONGINGS RETURNED PATIENT ASSISTED OUT VIA WC TO WAITING CAR
--- NOTE | 2019-10-09 12:40 | NUR ---
PT ORDERS RECEIVED AND ACKNOWLEDGED. PT DISCHARGES PRIOR TO PT INTERVENTIONS INITIATED.
== END 2019-10-08 12:30 | disposition home or self-care (01) ==
LOC: M.ERS 17:30 → M.2W 18:21 → M.TBA-ER 18:21 → M.2W 21:16
PROVIDERS: Family Medicine; ADMIT Family Medicine; ATTEND Family Medicine
DX: R42 Dizziness and giddiness (principal); I10 Essential (primary) hypertension; E11.9 Type 2 diabetes mellitus without complications; C85.90 Non-Hodgkin lymphoma, unspecified, unspecified site; G25.81 Restless legs syndrome; I25.10 Atherosclerotic heart disease of native coronary artery without angina pectoris; I25.2 Old myocardial infarction; M19.90 Unspecified osteoarthritis, unspecified site

== ENCOUNTER → 2019-12-14 | Outpatient (CLI) | payer MEDICARE | LOC: M.RAD 13:57 | PROVIDERS: ATTEND Family Medicine | DX: R05 Cough (principal) ==

== ENCOUNTER 2020-03-05 12:10 | Emergency (ER) | payer MEDICARE ==
[~2020-03-05] VITALS: Ht 154.9 cm; Wt 86.2 kg
[2020-03-05] MEDS ORDERED: NORCO 5-325 TA1 EAC2 PO (16:01)
[2020-03-05] MEDS ORDERED: FLEXERIL PO (16:01)
[2020-03-05] MEDS ORDERED: MEDROLDOSEPACK PO (16:02)
[2020-03-05 16:46] VITALS: BP 168/73
== END 2020-03-05 16:47 | disposition home or self-care (01) ==
LOC: M.ERS 12:10
DX: M54.2 Cervicalgia (principal); E03.9 Hypothyroidism, unspecified; K21.9 Gastro-esophageal reflux disease without esophagitis; I10 Essential (primary) hypertension; Z88.6 Allergy status to analgesic agent; Z88.5 Allergy status to narcotic agent; Z88.8 Allergy status to other drugs, medicaments and biological substances; Z91.041 Radiographic dye allergy status; Z90.49 Acquired absence of other specified parts of digestive tract; Z87.442 Personal history of urinary calculi; Z90.710 Acquired absence of both cervix and uterus

== ENCOUNTER → 2020-08-03 | Outpatient (CLI) | payer MEDICARE ==
[~2020-08-03] MED LIST changes: +NORCO 5-325 TA1 EAC2 PO
[2020-08-03 11:01] LABS: CHOLESTEROL 162 mg/dL (<200); HDL CHOLESTEROL 55 mg/dL (>40); LDL CHOLESTEROL 85 mg/dL (<100); SERUM ASSESSMENT Clear; SGOT 19 U/L (15-37); SGPT 27 U/L (30-65); TC:HDL 2.9 Ratio (Not establshd); TRIGLYCERIDE 111 mg/dL (<150); VLDL 22 mg/dL (<40)
== END ==
LOC: M.LAB 10:27
PROVIDERS: ATTEND Internal Medicine Cardiovascular Disease
DX: E78.2 Mixed hyperlipidemia (principal); I70.90 Unspecified atherosclerosis

== ENCOUNTER 2020-09-09 13:38 | Emergency (ER) | payer MEDICARE ==
[~2020-09-09] VITALS: Ht 157.5 cm; Wt 84.0 kg
[2020-09-09 14:10] LABS: ABSOLUTE BASOPHILS 0.1 thou/uL (0.0-0.2); ABSOLUTE EOSINOPHILS 0.1 thou/uL (0.0-0.7); ABSOLUTE LYMPHOCYTES 2.7 thou/uL (0.8-5.3); ABSOLUTE MONOCYTES 0.8 thou/uL (0.0-1.2); BASOPHILS 0.6 %; EOSINOPHILS 0.9 %; HEMOGLOBIN 13.9 gm/dL (12.0-15.0); LYMPHOCYTES 21.1 %; MCH 30.9 pg (26.0-34.0); MCV 90.9 fL (80.0-100.0); MONOCYTES 6.5 %; MPV 7.5 fl. (7.2-11.1); NUCLEATED RBCS 0 /100WBC; PLATELET COUNT* 318 thou/uL (150-400); POLYS 70.9 %; RBC 4.51 mil/uL (4.20-5.00); RDW-CV 13.6 % (10.5-14.5); WBC 12.8 thou/uL (4.0-11.0)
[2020-09-09 14:18] LABS: CALCIUM 9.2 mg/dL (8.5-10.1); CREATININE 0.5 mg/dL (0.6-1.3); POTASSIUM 3.4 mmol/L (3.5-5.1)
[2020-09-09 14:22] LABS: ALBUMIN 3.9 g/dL (3.4-5.0); TOTAL BILIRUBIN 0.7 mg/dL (<0.1-1.0); TOTAL PROTEIN 7.1 g/dL (6.4-8.2)
[2020-09-09 16:21] LABS: URINE BILIRUBIN NEGATIVE (Negative); URINE BLOOD TRACE (Negative); URINE CLARITY CLEAR; URINE COLOR YELLOW; URINE GLUCOSE-RANDOM NEGATIVE (Negative); URINE KETONES NEGATIVE (Negative); URINE LEUKOCYTES NEGATIVE (Negative); URINE NITRITE NEGATIVE (Negative); URINE PROTEIN NEGATIVE (Negative); URINE UROBILINOGEN 0.2 E.U./dl (0.2-1.0)
[2020-09-09] MEDS ORDERED: HYDROCODON-ACE1 EA11 PO (16:22)
[2020-09-09] MEDS ORDERED: CEPHALEXIN 250250 M1 PO (16:25)
[2020-09-09 16:51] VITALS: BP 138/76
--- NOTE | 2020-09-09 16:57 | EKG ---
[place] [address] ELECTROCARDIOGRAM REPORT Name: RAAD CAPUTO Room: [facility]#: [id number] Admission: 09/09/20 Attend Phys: Discharge: 09/09/20 Date of : 47 Date of Service: 09/09/20 1356 Report #: [id number] THIS REPORT FOR: //name// [facility] ED Test Date: 2020-09-09 Test Time: 13:56:01 Pat Name: RAAD CAPUTO Department: Room: Gender: Court Assistant: : 1945 Requested By: Dilan Aguilar Order Number: [id number] MD: Margarito Jimenez Measurements Intervals [place] Rate: 67 P: 46 GA: 147 QRS: -11 QRSD: 96 T: 19 QT: 433 QTc: 457 Interpretive Statements Sinus rhythm Compared to ECG 10/06/2019 17:43:16 Left ventricular hypertrophy no longer present Electronically Signed On 09-09-2020 16:57:10 CDT by Margarito Jimenez [email or web address] <ELECTRONICALLY SIGNED> By: Margarito Jimenez MD, [facility] 09/09/20 1657 1356 1356 Margarito Jimenez MD, [facility] /EPI
[2020-09-10] MEDS ORDERED: PERCOCET PO (17:26)
== END 2020-09-09 16:55 | disposition home or self-care (01) ==
LOC: M.ERS 13:38
PROVIDERS: Emergency Medicine
DX: G89.29 Other chronic pain (principal); M54.5 Low back pain; R10.84 Generalized abdominal pain; R31.9 Hematuria, unspecified; K21.9 Gastro-esophageal reflux disease without esophagitis; E03.9 Hypothyroidism, unspecified; Z88.6 Allergy status to analgesic agent; Z91.041 Radiographic dye allergy status; Z88.8 Allergy status to other drugs, medicaments and biological substances; Z90.49 Acquired absence of other specified parts of digestive tract; Z90.710 Acquired absence of both cervix and uterus; Z87.442 Personal history of urinary calculi

== ENCOUNTER 2020-09-10 15:19 | Emergency (ER) | payer MEDICARE ==
[~2020-09-10] VITALS: Ht 157.5 cm; Wt 84.4 kg
[~2020-09-10 15:19] MED LIST changes: +CEPHALEXIN 250250 M1 PO; +HYDROCODON-ACE1 EA11 PO
[2020-09-10 15:51] LABS: ABSOLUTE BASOPHILS 0.1 thou/uL (0.0-0.2); ABSOLUTE EOSINOPHILS 0.1 thou/uL (0.0-0.7); ABSOLUTE LYMPHOCYTES 2.7 thou/uL (0.8-5.3); ABSOLUTE MONOCYTES 0.8 thou/uL (0.0-1.2); ABSOLUTE NEUTROPHILS 7.1 thou/uL (1.6-8.1); BASOPHILS 0.8 %; EOSINOPHILS 0.7 %; HEMATOCRIT 43.2 % (37.0-47.0); HEMOGLOBIN 14.9 gm/dL (12.0-15.0); LYMPHOCYTES 24.7 %; MCH 31.4 pg (26.0-34.0); MCHC 34.5 g/dL (28.0-37.0); MCV 91.2 fL (80.0-100.0); MONOCYTES 7.5 %; MPV 7.8 fl. (7.2-11.1); NUCLEATED RBCS 0 /100WBC; PLATELET COUNT* 348 thou/uL (150-400); POLYS 66.3 %; RBC 4.74 mil/uL (4.20-5.00); RDW-CV 13.8 % (10.5-14.5); WBC 10.7 thou/uL (4.0-11.0)
[2020-09-10 15:58] LABS: APTT 22.6 Seconds (25.0-31.3); CALCIUM 9.5 mg/dL (8.5-10.1); CREATININE 0.6 mg/dL (0.6-1.3); INR 1.1; POTASSIUM 3.3 mmol/L (3.5-5.1); PROTIME 12.1 Seconds (9.20-11.50)
[2020-09-10 16:07] LABS: TOTAL BILIRUBIN 0.9 mg/dL (<0.1-1.0); TOTAL PROTEIN 7.5 g/dL (6.4-8.2)
[2020-09-10] MEDS ORDERED: PERCOCET PO (17:26)
[2020-09-10 19:45] VITALS: BP 160/72
--- NOTE | 2020-09-12 10:18 | EKG ---
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
== END 2020-09-10 19:45 | disposition home or self-care (01) ==
LOC: M.ERS 15:19
PROVIDERS: Family Medicine
DX: M54.5 Low back pain (principal); M54.6 Pain in thoracic spine; E03.9 Hypothyroidism, unspecified; K21.9 Gastro-esophageal reflux disease without esophagitis; G25.81 Restless legs syndrome; Z88.6 Allergy status to analgesic agent; Z88.5 Allergy status to narcotic agent; Z91.041 Radiographic dye allergy status; Z88.8 Allergy status to other drugs, medicaments and biological substances; Z90.49 Acquired absence of other specified parts of digestive tract; Z87.442 Personal history of urinary calculi; Z90.710 Acquired absence of both cervix and uterus; Z79.899 Other long term (current) drug therapy